=== PATIENT | male | born 1965 | race Caucasian/White ===

== ENCOUNTER → 2021-04-21 10:35 | Outpatient (CLI) | payer OTHER, MEDICAID, SELFPAY ==
[2021-04-21 13:36] LABS: COVID19 -Nasal RAPID Negative (Negative)
== END ==
PROVIDERS: PCP Family Medicine; Visit Provider Specialist
DX: Z20.822 Contact with and (suspected) exposure to COVID-19 (principal)
CPT/HCPCS: 87635; C9803

== ENCOUNTER 2021-04-24 10:51 | Day surgery (SDC) | payer OTHER, MEDICAID, SELFPAY ==
[2021-04-21 08:13] VITALS: BMI 36.8
[2021-04-24] VITALS (12 sets, daily range): BP systolic 110–149; BP diastolic 59–92; PULSE 59–77; RESP 10–20; TEMP 35.5–37; O2SAT 93–98; BMI 36.8
--- NOTE | 2021-04-24 | PATH_ITS ---
[facility] Accession Number: [id number] . 01 Material submitted: . prostate - PROSTATE CHIPS . 01 Diagnosis: Prostate Chips, Transurethral Resection: Benign prostatic parenchyma. No evidence of malignancy. V 04/26/2021 1205 Local . 01 Electronically signed: . Desiree Salter MD, Pathologist NPI- [id number] . 01 Gross description: . The specimen is received in formalin, labeled prostate chips and consists of a 12-gram, 5.0 x 4.5 x 2.5 cm aggregate of morse-pink, partially cauterized fragments of soft tissue. The specimen is entirely submitted in cassettes A1-A7. ([id number]) /V 04/25/2021 0945 Local . 01 Pathologist provided ICD-10: N40.0 . 01 CPT . 739205 Performed at: 01 [facility] [address] [place] [address], [place], [place] [id number] MD Bossman Simmons MD Phone: [phone]
[2021-04-24] MEDS: LACTATED RINGERS 1,000 ML 42 ML IV (12:19)
[2021-04-24] MEDS: BELLADONNA/OPIUM SUPPOSITORIES 1 EACH PR ×2 (13:18→17:25)
--- NOTE | 2021-04-24 16:29 | PM.PREOP ---
Pre-operative Note Interval Note History & Physical reviewed/Exam performed by Physician: Yes Changes to H&P: No
[2021-04-24] MEDS: CEFAZOLIN 3 GM IN 0.9 % NACL 100 ML IV (16:35)
--- NOTE | 2021-04-24 17:05 | SUR.OPER ---
Lithotomy on padded OR bed, head on pillow, arms secured on padded arm boards at <90 degrees abduction. Legs secured in padded yellow fins stirrups.
[2021-04-24 17:37] LABS: Bacteria Urine None Seen
--- NOTE | 2021-04-24 17:53 | PM.OP.1 ---
Operative Date/Time/Diagnoses Date of procedure: 04/24/21 Time of procedure: 17:54 Pre-op diagnosis: 1. BPH 2. Bladder outlet obstruction 3. Failure medical therapy Post-op diagnosis: same Procedure & Clinicians Procedure: 1. Transurethral resection of the prostate. Same procedure as scheduled: Yes Indications: 1. BPH 2. Bladder outlet obstruction 3. Failure medical therapy Surgeon: Selma Hanks Click Yes if Unassisted: Yes Anesthesia Type: Spinal (Plus LMA) Operative Notes Findings: 1. Urethra-normal caliber without annular stricture or lesion. 2. External sphincter coapted with normal overlying urothelium. 3. Prostate-4.5 cm length with markedly obstructing intravesical median lobe and high median bar. 4. Bladder-2+ trabeculation. Normal ureteral orifices bilaterally. Efflux is clear. No evidence of stone, tumor, or diverticulum. There is marked intravascular protrusion of median lobe of the prostate. Closure Type: not applicable Specimen(s): other (Prostate chips) Applied: catheter (Number [address] hematuria catheter) Estimated Blood Loss (mL): 10 Blood products transfused: none Procedure in detail: The patient was positioned supine and administered general anesthesia. He was then repositioned semi lithotomy and the lower abdomen, genitalia, and groin were then prepped and draped in sterile fashion. The Shailesh sounds were used to gently dilate the meatus and sub meatal segment of the urethra. The resectoscope was then passed lower urinary tract under direct visualization with the findings as described above. The resectoscope was then fitted with the resecting loop and TUR of the intravesical median lobe and elevated median bar was then undertaken from bladder neck to a point just proximal verumontanum. Resection was extended a bit laterally and posterior laterally as well. Once this was accomplished there is no evidence of obstructing tissue when position in the distal prostatic fossa. Hemostasis was accomplished with electrocautery. Next, all chips were irrigated from the bladder and submitted to pathology for routine gross and microscopic examination. The bladder was then filled once again and resectoscope removed. A [address], 3 way, hematuria catheter was then passed in the lower urinary tract over a catheter guide. The balloon was filled the 30 cc with sterile saline. The catheter irrigated clear. It was then set to normal saline continuous irrigation inflow and gravity drain outflow. The patient was then repositioned in supine, awakened, and transferred to recovery. Complications: none Post-operative Condition: stable Disposition: PACU
[2021-04-24] MEDS: OXYCODONE/ACETAMINOPHEN 5/325 TABLET 1 TAB PO (18:12)
--- NOTE | 2021-04-24 18:23 | SUR.PHASEI ---
received to PACU after spinal/general anesthesia. Airway patent, self maintained. Report from Dr Xie, and JULIANA Kang.
--- NOTE | 2021-04-24 18:45 | SUR.PHASEI ---
Pt transferred to room 204 with belongings. Received in room by DARREN Easley.
[2021-04-24 18:50] LABS: Appearance Urine UA CLEAR; Bilirubin Urine UA NEGATIVE (NEGATIVE); Color Urine UA YELLOW; Glucose Urine UA NEGATIVE (Negative); Ketones Urine UA NEGATIVE (NEGATIVE); Leukocyte Esterase Urine UA NEGATIVE (NEGATIVE); Nitrite Urine UA NEGATIVE (Negative); Occult Blood Urine UA 2+ (Negative); Protein Urine UA NEGATIVE (Negative); Specific Gravity Urine UA 1.015 (1.000-1.035); Urobilinogen Urine UA 0.2 E.U./dL (0.2)
[2021-04-24 19:01] LABS: Culture Indicated Urine Cult Not Indicated; RBC Urine 10-30/HPF (0-5/HPF); WBC Urine 0-1/HPF (0-5/HPF)
[2021-04-24] MEDS: LACTATED RINGERS 1,000 ML 125 ML IV (19:04)
[2021-04-24] MEDS: DULOXETINE 20 MG CAPSULE PO (21:05)
[2021-04-24] MEDS: diphenhydrAMINE 50 MG/ML VIAL 25 MG IV (21:05)
--- NOTE | 2021-04-24 22:27 | PC.NURSE ---
Admit/Evening Shift Note- Patient arrived to room via bed from PACU at 1840. Patient alert ad oriented and able to make needs known to staff. Admit quesitos done, medicatiohns reviewed, physical assessment done, and skin check =completed. No complaints of pain or discomfort. No complaints of N/v. RT set up CPAP. Patient oriented to bed and bed controls, room, ,lights, phone, menu, bahroom, and call rogers/tv remote. safety measures in place. Patient agrees to call for assistance. Callbell and phone within reach . will continue to monitor.
[2021-04-25] VITALS: BP 125/74; PULSE 58; RESP 18; TEMP 36.9; O2SAT 94
[2021-04-25] MEDS: diphenhydrAMINE 50 MG/ML VIAL 25 MG IV (02:38)
[2021-04-25] MEDS: LACTATED RINGERS 1,000 ML 125 ML IV (02:41)
[2021-04-25 04:00] VITALS: BP 103/60; PULSE 63; RESP 14; TEMP 36.2; O2SAT 97
[2021-04-25 07:40] VITALS: O2SAT 96
[2021-04-25 07:49] VITALS: BP 108/63; PULSE 68; RESP 16; TEMP 36.6; O2SAT 95
--- NOTE | 2021-04-25 07:56 | P.PN_ITS ---
Subjective Subjective Date Patient Seen: 04/25/21 Time Patient Seen: 07:56 Exam Vital Signs (past 8 hours): - 04/25/21 00:00 04/25/21 04:00 04/25/21 07:49 Temperature 98.4 F 97.1 F L 97.9 F Pulse Rate 58 L 63 68 Respiratory Rate 18 14 16 Blood Pressure 125/74 103/60 108/63 Pulse Oximetry 94 97 95 Oxygen Delivery Method Room Air,CPAP Oxygen Flow Rate 0 Narrative Exam Narrative: The patient is sitting upright in bed taking p.o. and in no distress. He denies pain or nausea. Abdomen is obese and soft without tenderness. Objective Labs Labs: Laboratory Results - last 24 hr 04/24/21 17:16 Urine Color Yellow Urine Appearance Clear Urine pH 6.0 Ur Specific [place] 1.015 Urine Protein Negative Urine Glucose (UA) Negative Urine Ketones Negative Urine Occult Blood 2+ H Urine Nitrate Negative Urine Bilirubin Negative Urine Urobilinogen 0.2 Ur Leukocyte Esterase Negative Urine RBC 10-30/hpf H Urine WBC 0-1/hpf Urine Bacteria None seen Ur Culture Indicated? 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 Stable postoperative day and 1. TURP. 2. Pathology pending. Plan: 1. Discontinue normal saline continuous bladder irrigation and IV. 2. Observe catheter patency and color/character of urine outflow following above. 3. Anticipate discharge with indwelling York catheter later this day. 4. Follow-up pathology as outpatient when report final. Time Spent With Patient Critical Care time: I spent a total of [] minutes of critical care time on this patient's care today; this time is exclusive of procedural time. Quality VTE Deep Vein Thrombosis/Pulmonary Embolism Present on Admission: No
[2021-04-25] MEDS: DULOXETINE 20 MG CAPSULE PO (09:00)
--- NOTE | 2021-04-25 09:40 | PC.NURSE ---
Day shift: Irregation hole plugged per . York bag emptied and Pt ambulated in halls. Upon return York bag inspected and urine remains clear and light pink. No clots present. Pt tolerated well. York and leg bag instruction given to Pt and his spouse this AM as well. We go angela York again prior to d/c today. Pt still denies any pain or discomfort.
--- NOTE | 2021-04-25 10:17 | CM.DANOTE ---
DCP: Case received, EMR reviewed and met with patient. Spouse, Vanessa, was at bedside. Introduced self and role. Was able to obtain information regarding patient's baseline activity status prior to hospitalization. DCP assessment completed with information currently available. Patient is a 55 year old male who admitted yesterday morning to the care of the urology team. PCP: Dr. Aguilera Payer: confirmed: [employer]/Medicaid. Patient came to the hospital via private vehicle for a surgical procedure. He has a transurethral resection of his prostate. Patient has had history of bladder obstruction. He has history f benign prostatic hyperplasia. He now currently has taylor. Met with patient and spouse. He is independent at his baseline. He and his spouse reside in [facility]. Patient drives, is not currently employed. Patient had been ambulating in his room. He will go home with taylor, and will follow up in urology office in a few days. P: DCP to continue to follow. Patient should be able to go home when he is medically stable. Franny Chung RN/Pipe Covering [employer]
--- NOTE | 2021-04-25 12:16 | P.DS_ITS ---
History of Present Illness History of Present Illness Date Patient Seen: 04/25/21 Time Patient Seen: 12:16 Chief complaint: Transurethral Resection Prostate Narrative: The patient is postoperative day 1. Status post uncomplicated transurethral resection of the prostate for bladder outlet obstruction and failure medical therapy. Discharge Providers Provider Discharge Date: 04/25/21 Primary care physician: Enoc Aguilera DO Discharge provider: Selma Hanks MD Summary Hospital Course Discharge Diagnosis: 1. BPH 2. Bladder outlet obstruction. 3. Failure medical therapy. Hospital Course: Patient was admitted on 04/24/2021, and underwent uncomplicated transurethral resection of the prostate under combined spinal an LMA anesthesia. His postoperative course was entirely unremarkable with respect to management of pain, resumption of normal diet, and return of bowel function. The 3 way York catheter inflow was plugged early this morning and patient has since ambulated freely without pain. Urine clarity remains light pink without clots. Exam Vital Signs (past 8 hours): - 04/25/21 07:40 04/25/21 07:49 Temperature 97.9 F Pulse Rate 68 Respiratory Rate 16 Blood Pressure 108/63 Pulse Oximetry 96 95 Oxygen Delivery Method Room Air Oxygen Flow Rate 0 Narrative Exam Narrative: Not repeated at discharge. Objective Labs Labs: Laboratory Results - last 24 hr 04/24/21 17:16 Urine Color Yellow Urine Appearance Clear Urine pH 6.0 Ur Specific [place] 1.015 Urine Protein Negative Urine Glucose (UA) Negative Urine Ketones Negative Urine Occult Blood 2+ H Urine Nitrate Negative Urine Bilirubin Negative Urine Urobilinogen 0.2 Ur Leukocyte Esterase Negative Urine RBC 10-30/hpf H Urine WBC 0-1/hpf Urine Bacteria None seen Ur Culture Indicated? 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 Stable and doing well postop day 1. Status post transurethral resection of the prostate. 2. Pathology pending. 3. Indwelling York catheter. Plan of Treatment: 1. Discharge home today. 2. Return to Urology Clinic for outpatient voiding trial 04/27/2021, as schedule. 3. Rx Septra for catheter removal prophylaxis. 4. Follow-up pathology as outpatient when available. Discharge Plan Discharge Plan Patient Disposition: Home Provider Discharge Comment: Follow-up in Urology Clinic as scheduled 04/28/2021 Discharge orders & Medications Discharge Orders: Discharge (Order); Ordered 04/25/21 Ordered By: Selma Hanks Prescriptions: New sulfamethoxazole-trimethoprim [Bactrim] 400-80 mg tablet 1 tab PO BID Qty: 6 RF: 0 Continued acetaminophen 650 mg Tablet Extended Release 1,300 mg PO QAM RF: 0 duloxetine 20 mg Capsule,Delayed Release(Dr/Ec) 20 mg PO BID RF: 0 naproxen sodium [Aleve] 220 mg Capsule 660 mg PO QNOON RF: 0 Multivitamin Gummies 200 mcg Tablet,Chewable 2 tab PO DAILY RF: 0 Discontinued doxazosin 4 mg tablet 8 mg PO DAILY RF: 0 No Action (DME) Respironics Dreamstation CPAP Qty: 1 RF: 0 Follow up/Referrals: Enoc Aguilera DO [Primary Care Provider] - Diet/Activity/Treatments Diet: Diet as Tolerated Activity: No lifting greater than 15 lb or strenuous activity x4 weeks. Catheter: 3-way York Skin/Wound/Dressing Care Report to your healthcare provider any signs of infection, such as:: chills, fever, night sweats and increased pain Visit Report/Discharge Packet Instructions: How to Care for Your York Catheter -- Male, DI for Transurethral Resection of the Prostate Stand Alone Forms: Surgery Discharge Discharge Data Primary Care Provider: Enoc Aguilera Attending Provider: Selma Hanks Quality VTE Deep Vein Thrombosis/Pulmonary Embolism Present on Admission: No
--- NOTE | 2021-04-25 13:09 | PC.NURSE ---
Day shift: Paperwork signed and all questions answered. IV removed. Went over York teaching again with Pt and his spouse. Pt has denies any pain or nausea. MD lai went electronic to Pt's pharmacy. Encouraged Pt to take all antibiotics. He has F/U w/ Dr Appiah on and that is all set up. Urine remains a light pink and Pt ambulated in halls. Taken to car that his is driving at approx 1330. Taken to that car in [place].
== END 2021-04-25 13:19 | disposition home or self-care (01) ==
LOC: OR 10:53 → AC 13:34
PROVIDERS: PCP Family Medicine; Referring Provider Specialist; Visit Provider Specialist
PROC: 0VT08ZZ Resection of Prostate, Via Natural or Artificial Opening Endoscopic (ICD-10-PCS; CPT 52601; principal; 2021-04-24 14:15)
DX: N40.1 Benign prostatic hyperplasia with lower urinary tract symptoms (principal); N13.8 Other obstructive and reflux uropathy; G47.33 Obstructive sleep apnea (adult) (pediatric); E66.9 Obesity, unspecified; Z68.37 Body mass index [BMI] 37.0-37.9, adult
CPT/HCPCS: 52601; 81001; 82962; 94762; J0690; J1100; J1200; J1885; J2250; J2274; J2405; J2704; J3010